=== PATIENT | male | born 1940 | race Caucasian/White ===

== ENCOUNTER 2021-03-11 00:41 | Inpatient (IN) | payer MEDICARE, OTHER ==
[~2021-03-11] VITALS: Ht 170.2 cm; Wt 82.6 kg
--- NOTE | 2021-03-11 01:11 | NUR ---
Patient BIB private ambulance from [facility] on a 5150 hold for DTO to be medically cleared to be admitted to MHU. Patient upon arrival calm and cooperative, A/Ox2. Patient denies CP, SOB, N/V. No distress noted.
[2021-03-11] MEDS ORDERED: ATOR10TA PO (01:15)
[2021-03-11] MEDS ORDERED: HYDR25TA4 PO (01:15)
[2021-03-11] MEDS ORDERED: BENA40TA8 PO (01:15)
[2021-03-11] MEDS ORDERED: robaxin PO (01:15)
[2021-03-11] MEDS ORDERED: QUET25TA PO (01:15)
[2021-03-11] MEDS ORDERED: ALBU18HF2 INH (01:15)
[2021-03-11] MEDS ORDERED: CELE200C PO (01:15)
[2021-03-11] MEDS ORDERED: BENA1TAB72 PO (01:15)
[2021-03-11] MEDS ORDERED: FAMO-132 PO (01:15)
[2021-03-11] MEDS ORDERED: LEVO100T10 PO (01:15)
[2021-03-11] MEDS ORDERED: METF-495 PO (01:15)
[2021-03-11] MEDS ORDERED: ASCO-375 PO (01:15)
[2021-03-11] MEDS ORDERED: AMLO10TA59 PO (01:15)
[2021-03-11] MEDS ORDERED: BENZ-13 PO (01:15)
[2021-03-11] MEDS ORDERED: DULO60CA45 PO (01:15)
[2021-03-11] MEDS ORDERED: DONE5TAB7 PO (01:15)
--- NOTE | 2021-03-11 02:00 | NUR ---
Transfered to MHU via gurny with no distress noted.
[2021-03-11 02:30] VITALS: BP 173/91
[2021-03-11 02:45] VITALS: BP 133/75
[2021-03-11] MEDS ORDERED: BLOOD SUGAR DIAGNOSTIC 1 EACH STRIP VI ONE (02:45)
[2021-03-11] MEDS ORDERED: MAG HYDROX/AL HYDROX/SIMETH 30 ML LIQUID UDC PO PRN (02:45)
[2021-03-11] MEDS ORDERED: MAGNESIUM HYDROXIDE 30 ML LIQUID UDC PO PRN (02:45)
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
[2021-03-11] MEDS: LORAZEPAM 1 MG TABLET PO PRN ×3 (03:01→14:40)
[2021-03-11] MEDS: ACETAMINOPHEN 325 MG TABLET PO PRN (03:02)
[2021-03-11 03:45] VITALS: BP 133/75
[2021-03-11] MEDS ORDERED: CLONIDINE HCL 0.1 MG TABLET PO ONE (03:45)
--- NOTE | 2021-03-11 03:45 | NUR ---
HIGH BLOOD PRESSURE NOTE; b/p upon admission was 173/91. pt was aggressive, and PRN ativan was given, at 0245. as of now, it is 133/75. pt was uncooperative with interview, as well as a poor historian. he was assisted to the toilet, then to bed.
[2021-03-11] MEDS ORDERED: hydrALAZINE HCL 10 MG TABLET PO PRN (04:00)
--- NOTE | 2021-03-11 04:15 | NUR ---
appears to be asleep. Dr. Bass was notifird of elevated b/p. PRN orders for hydralazine were given, and noted. will continue to monitor closely.
[2021-03-11 05:03] LABS: *BILIRUBIN,URIN NEGATIVE (NEGATIVE); *BLOOD, URINE NEGATIVE (NEGATIVE); *CLARITY,URINE CLEAR (CLEAR); *COLOR,URINE YELLOW (YELLOW); *KETONES,URINE NEGATIVE (NEGATIVE); *UROBILINOGEN,URINE 0.2 E.U./dl (NORMAL); LEUKOCYTE ESTERASE ,URINE NEGATIVE (NEGATIVE); NITRITE, URINE NEGATIVE (NEGATIVE); PH,URINE 6.5 (5.0-8.0); UGLUCOSE NEGATIVE (NEGATIVE)
--- NOTE | 2021-03-11 06:30 | NUR ---
slept 8 hours. continues to sleep. am labs, drawn without problems. will continue to monitor closely.
[2021-03-11 07:30] VITALS: BP 145/71
--- NOTE | 2021-03-11 09:07 | NUR ---
Firearms Report: Package Car Driver completed and submitted a DOJ firearms report for 5150 grave disability certifications. A copy of report has been placed in patient chart.
--- NOTE | 2021-03-11 10:32 | NUR ---
LESLY Family contact: LESLY left a voicemail for patient's Tosha ([phone]) to discuss treatment and discharge plan. Waiting for a call back. LESLY also attempted to call different phone number ([phone]) however no dial tone.
--- NOTE | 2021-03-11 10:36 | NUR ---
Treatment Plan: Patient refused to sign treatment plan due to disorganized thought process.
[2021-03-11] MEDS ORDERED: DEXTROSE 50% 50 ML DISP.SYRIN IV PRN (12:15)
[2021-03-11] MEDS ORDERED: ALBUTEROL SULFATE 8 GM HFA.AER.AD INH PRN (12:15)
[2021-03-11] MEDS: ASCORBIC ACID 500 MG TABLET PO SCH (12:29)
[2021-03-11] MEDS: AMLODIPINE 10 MG TABLET PO SCH (12:29)
[2021-03-11] MEDS ORDERED: ALBUTEROL SULFATE 2.5 MG/3 ML NEBU NEB PRN (12:30)
--- NOTE | 2021-03-11 12:51 | NUR ---
GPS: Nursing Notes: Destructive Behavior to Others: Patient is awake and responding to his name, impaired judgment, resistant with nursing care, disoriented, gets easily irritable when redirected, resistant with nursing care, episodes of disrobing, throwing his cloth and pillow on the floor, redirected and reoriented during shift, unsteady gait, on fall precautions, but constantly trying to get out of guanaco chair, believes that he needs to go home across the street, unable to ambulate by self, loud and pressured speech, internally preoccupied, anxious, unable to formulate a viable plan for self care, continue with treatment plan.
[2021-03-11] MEDS: LEVOTHYROXINE SODIUM 100 MCG TABLET PO SCH (13:04)
[2021-03-11] MEDS: CELECOXIB 100 MG CAPSULE PO SCH ×2 (13:05→21:57)
[2021-03-11] MEDS: HYDROCHLOROTHIAZIDE 25 MG TABLET PO SCH (13:06)
[2021-03-11] MEDS ORDERED: QUETIAPINE FUMARATE 25 MG TABLET PO PRN (13:30)
[2021-03-11] MEDS: DIVALPROEX SPRINKLE 125 MG CAP.SPRINK PO SCH ×2 (14:41→17:15)
[2021-03-11 15:13] VITALS: BP 169/68
[2021-03-11] MEDS ORDERED: INSULIN REGULAR, HUMAN 300 UNIT/3 ML VIAL SQ PRN (16:30)
[2021-03-11] MEDS: QUETIAPINE FUMARATE 25 MG TABLET PO SCH ×2 (17:00→22:00)
[2021-03-11] MEDS: METFORMIN XR 500 MG TAB.SR.24H PO SCH (17:15)
[2021-03-11] MEDS: BLOOD SUGAR DIAGNOSTIC 1 EACH STRIP VI SCH ×2 (17:17→22:29)
[2021-03-11 20:03] VITALS: BP 134/79
[2021-03-11] MEDS ORDERED: ATORVASTATIN 10 MG TABLET PO SCH (21:00)
[2021-03-11] MEDS: DONEPEZIL 5 MG TABLET PO SCH (22:00)
--- NOTE | 2021-03-11 22:00 | NUR ---
received to care, initially asleep. attempted to climb out of bed around 2029, and was assisted to the bathroom, where he voided, and had a bowel movement. when this auto service writer attempted to give him his Meds, he was asleep, and slow to awaken. he was confused, but agreed to take his bedtime medications when given to him, he was offered the cup, but didnt seem to understand what to do, so they were placed in his mouth for him. he immediately threw them out of his mouth, refusing all Meds. water was offered, but he threw that, too. he was very angry/hostile, stating "get the hell out of my house" reorientation was attempted, but he remained uncooperative. he fell back asleep quickly. bed alarm armed for safety. HOB elevated. remains asleep, in no acute distress. will continue to monitor closely.
--- NOTE | 2021-03-12 06:30 | NUR ---
slept 6.0 hours. assisted to bathroom. pt remains labile, hostile, and easily agitated.
[2021-03-12] MEDS: BLOOD SUGAR DIAGNOSTIC 1 EACH STRIP VI SCH ×3 (07:02→17:00)
[2021-03-12 07:30] VITALS: BP 159/76
[2021-03-12 07:58] LABS: MEAN CORPUSCULAR VOLUME 98.6 fL (73.0-96.2); PLATELET COUNT (AUTO) 269 K/uL (152-348)
[2021-03-12] MEDS: DIVALPROEX SPRINKLE 125 MG CAP.SPRINK PO SCH ×3 (08:20→16:52)
[2021-03-12] MEDS: AMLODIPINE 10 MG TABLET PO SCH (08:21)
[2021-03-12] MEDS: ASCORBIC ACID 500 MG TABLET PO SCH (08:21)
[2021-03-12] MEDS: CELECOXIB 100 MG CAPSULE PO SCH ×2 (08:24→16:55)
[2021-03-12 08:26] LABS: BILIRUBIN,TOTAL 0.9 mg/dL (0.2-1.0); CREATININE 1.1 mg/dL (0.6-1.3); MAGNESIUM 1.7 mg/dL (1.8-2.4); PHOSPHOROUS 3.1 mg/dL (2.5-4.9); POTASSIUM 3.8 mmol/L (3.5-5.1); TOTAL PROTEIN, SERUM 7.4 g/dL (6.4-8.2)
[2021-03-12] MEDS: HYDROCHLOROTHIAZIDE 25 MG TABLET PO SCH (08:27)
[2021-03-12] MEDS: LEVOTHYROXINE SODIUM 100 MCG TABLET PO SCH (08:28)
[2021-03-12] MEDS: METFORMIN XR 500 MG TAB.SR.24H PO SCH ×2 (08:30→17:00)
[2021-03-12] MEDS: QUETIAPINE FUMARATE 25 MG TABLET PO SCH ×3 (08:34→20:31)
[2021-03-12 08:45] LABS: THYROID STIMULATING HORMONE 1.703 mIU/mL (0.358-3.740)
--- NOTE | 2021-03-12 09:00 | NUR ---
GPS:Nursing note: Pt is awake in guanaco- chair. a/o x1. pt spt out medication, stated he is unable to swallow medications and they make him choke, he was compliant with crushed medications in apple sauce. pt appears stable, not in acute distress or discomfort at this time. will continue to monitor.
--- NOTE | 2021-03-12 11:24 | NUR ---
LESLY Initial Discharge Plan: Patient resides at home [address] [place] [address] with pt's , Tosha ([phone]). Patient's requested a SNF placement for the patient at this time upon discharge from the hospital. LESLY will continue to work with patient, family, and MD to ensure a safe and proper discharge plan.
--- NOTE | 2021-03-12 11:25 | NUR ---
SW Family contact: SW spoke with patient's Tosha ([phone]) and discussed treatment and discharge plan. Tosha provided collateral information (see sw assessment). Tosha stated she the DPOA and this SW requested copies. Tosha would like SNF placement for the patient. SW will coordinate appropriate placement options.
[2021-03-12] MEDS ORDERED: MAGNESIUM OXIDE 400 MG TABLET PO ONE (11:30)
[2021-03-12] MEDS: FAMOTIDINE 20 MG TABLET PO SCH (14:54)
[2021-03-12 16:00] VITALS: BP 151/70
[2021-03-12] MEDS: DONEPEZIL 5 MG TABLET PO SCH (20:31)
[2021-03-12] MEDS: LISINOPRIL 5 MG TABLET PO SCH (20:57)
[2021-03-12 21:13] VITALS: BP 146/74
[2021-03-13] MEDS: LISINOPRIL 5 MG TABLET PO SCH ×2 (08:55→20:03)
[2021-03-13] MEDS: METFORMIN HCL 500 MG TABLET PO SCH ×2 (08:56→17:51)
[2021-03-13] MEDS: DIVALPROEX SPRINKLE 125 MG CAP.SPRINK PO SCH ×3 (08:56→17:51)
[2021-03-13] MEDS: ASCORBIC ACID 500 MG TABLET PO SCH (08:56)
[2021-03-13] MEDS: LEVOTHYROXINE SODIUM 100 MCG TABLET PO SCH (08:56)
[2021-03-13] MEDS: CELECOXIB 100 MG CAPSULE PO SCH ×2 (08:56→17:00)
[2021-03-13] MEDS: QUETIAPINE FUMARATE 25 MG TABLET PO SCH ×3 (08:56→20:02)
[2021-03-13] MEDS: AMLODIPINE 10 MG TABLET PO SCH (08:57)
[2021-03-13] MEDS: FAMOTIDINE 20 MG TABLET PO SCH (08:58)
[2021-03-13] MEDS: HYDROCHLOROTHIAZIDE 25 MG TABLET PO SCH (09:11)
--- NOTE | 2021-03-13 13:37 | NUR ---
LESLY SNF Referral: LESLY faxed patient's referral packet to [facility] ( ) attention to Fritz and learning services coordinator Lawrence for review.
--- NOTE | 2021-03-13 15:58 | NUR ---
Gps/Personnel Clerk- Remains up in his guanaco-chair , compliant with routine medications, safety reviewed, emphasized.
[2021-03-13 16:00] VITALS: BP_SYST 126; BP_SYST 162; BP_DIAS 66; BP_DIAS 76
[2021-03-13] MEDS: DONEPEZIL 5 MG TABLET PO SCH (20:02)
[2021-03-13 20:04] VITALS: BP 156/71
[2021-03-13] MEDS: ACETAMINOPHEN 325 MG TABLET PO PRN (20:23)
--- NOTE | 2021-03-13 22:00 | NUR ---
GPS: Asleep at this time in bed with bed alarm on for safety. Confused,forgetful and disorganized. Reality re-orientation provided prn. Assisted to the bathroom prn. Med.compliant. No aggressive behavior noted but was easily irritable earlier. Will continue to monitor.
[2021-03-14] MEDS: LORAZEPAM 1 MG TABLET PO PRN (06:25)
[2021-03-14] MEDS: LEVOTHYROXINE SODIUM 100 MCG TABLET PO SCH (06:25)
--- NOTE | 2021-03-14 06:25 | NUR ---
GPS: Pt. is confused,disoriented and attempting to wander in other pt's room. Easily agitated/irritable when being re-directed. Verbally abusive to this keno writer/runner when being re-directed and attempting to strike out at staff. Refused Synthroid med and Ativan 1mg PO when offered. Meds were thrown by pt.on the floor. Encouraged and assisted back to bed at this time. Fall precautions observed. Will continue to monitor for further escalation of behavior.
[2021-03-14 07:30] VITALS: BP 155/68
[2021-03-14] MEDS: METFORMIN HCL 500 MG TABLET PO SCH ×3 (08:00→17:40)
[2021-03-14] MEDS: CELECOXIB 100 MG CAPSULE PO SCH ×3 (09:00→16:38)
[2021-03-14] MEDS: DIVALPROEX SPRINKLE 125 MG CAP.SPRINK PO SCH ×5 (09:00→17:05)
[2021-03-14] MEDS: QUETIAPINE FUMARATE 25 MG TABLET PO SCH ×4 (09:00→20:18)
[2021-03-14] MEDS: FAMOTIDINE 20 MG TABLET PO SCH (09:29)
[2021-03-14] MEDS: ASCORBIC ACID 500 MG TABLET PO SCH (09:29)
[2021-03-14] MEDS: HYDROCHLOROTHIAZIDE 25 MG TABLET PO SCH (09:32)
[2021-03-14] MEDS: AMLODIPINE 10 MG TABLET PO SCH (09:33)
[2021-03-14] MEDS: LISINOPRIL 5 MG TABLET PO SCH ×2 (09:34→20:16)
--- NOTE | 2021-03-14 10:18 | NUR ---
Gps/It Web Development Consultant- Remains up in his guanaco-chair , refusing to take routine am meds., spits out all medications , explained to patient importance of his medications, claimed his in the only person that gives him meds. patient tricky with his meds. pretends he took, spits it back in his water . Gets irritable, grumpy.
--- NOTE | 2021-03-14 10:42 | NUR ---
LESLY PC Hearing: Patient had 5250 probable cause hearing today and it was upheld for grave disability.
[2021-03-14] MEDS ORDERED: QUETIAPINE FUMARATE 25 MG TABLET PO PRN (13:30)
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
[2021-03-14 16:06] VITALS: BP 152/77
[2021-03-14 20:12] VITALS: BP 100/55
[2021-03-14] MEDS: DONEPEZIL 5 MG TABLET PO SCH (20:18)
[2021-03-14] MEDS: ACETAMINOPHEN 325 MG TABLET PO PRN (20:19)
[2021-03-14] MEDS: TEMAZEPAM 7.5 MG CAPSULE PO PRN (22:51)
[2021-03-15] MEDS: LEVOTHYROXINE SODIUM 100 MCG TABLET PO SCH (06:21)
--- NOTE | 2021-03-15 06:34 | NUR ---
GPS: Pt.slept 6 hrs.last night. Assisted to the bathroom x2 during the shift due to unsteady gait. No escalation of behavior noted. Re-directed and re-assured prn. Will continue to monitor.
[2021-03-15 07:10] LABS: BILIRUBIN,TOTAL 0.6 mg/dL (0.2-1.0); CREATININE 1.3 mg/dL (0.6-1.3); POTASSIUM 4.3 mmol/L (3.5-5.1); TOTAL PROTEIN, SERUM 6.7 g/dL (6.4-8.2)
[2021-03-15 07:12] LABS: HEMATOCRIT 39.1 % (36.7-47.1); MEAN CORPUSCULAR HEMOGLOBIN 33.7 uug (23.8-33.4); MEAN CORPUSCULAR VOLUME 99.7 fL (73.0-96.2); PLATELET COUNT (AUTO) 227 K/uL (152-348)
[2021-03-15 07:30] VITALS: BP 139/65
[2021-03-15] MEDS: DIVALPROEX SPRINKLE 125 MG CAP.SPRINK PO SCH ×3 (08:53→16:22)
[2021-03-15] MEDS: ASCORBIC ACID 500 MG TABLET PO SCH (08:54)
[2021-03-15] MEDS: HYDROCHLOROTHIAZIDE 25 MG TABLET PO SCH (08:54)
[2021-03-15] MEDS: CELECOXIB 100 MG CAPSULE PO SCH ×2 (08:54→16:21)
[2021-03-15] MEDS: LISINOPRIL 5 MG TABLET PO SCH ×2 (08:54→19:49)
[2021-03-15] MEDS: AMLODIPINE 10 MG TABLET PO SCH (08:55)
[2021-03-15] MEDS: FAMOTIDINE 20 MG TABLET PO SCH (08:55)
[2021-03-15] MEDS: QUETIAPINE FUMARATE 25 MG TABLET PO SCH ×4 (08:55→19:49)
[2021-03-15] MEDS: METFORMIN HCL 500 MG TABLET PO SCH ×2 (09:35→18:06)
--- NOTE | 2021-03-15 13:30 | NUR ---
Gps/Teacher Of Gifted Students- Ambulated to the bathroom with front wheel walker, continent of bladder.Patient preferred to eat sandwich , fed self ind. compliant with his routine pm meds. Patient wants to stay up in his guanaco-chair. Had been interactive with staff. gets easily irritable, but making simple needs known.
--- NOTE | 2021-03-15 14:54 | NUR ---
Gps/Cardiac Nurse- Complained of being tired, patient was assisted back to bed, ambulated back to his room with front wheel walker . Safety reviewed, and emphasized.
[2021-03-15 16:00] VITALS: BP 139/67
--- NOTE | 2021-03-15 18:48 | NUR ---
Gps/Food Crops Farm Hand- Patient remains up in his guanaco-chair , confused and disoriented, calling out, needed redirections .Ambulated to the bathroom with FWW, min assist .
[2021-03-15] MEDS: LORAZEPAM 1 MG TABLET PO PRN (19:48)
[2021-03-15] MEDS: DONEPEZIL 5 MG TABLET PO SCH (19:49)
[2021-03-15 20:00] VITALS: BP 111/75
--- NOTE | 2021-03-16 05:07 | NUR ---
Received patient in the Margot chair scooting himself around the unit. Patient was angry and with visual hallucinations. Multiple attempts to reorient the patient were unsuccessful. This technical proposal writer was eventually able to calm patient down at which point , the patient took his PM medications without difficulty. Assistance provided to patient when going to the bathroom a couple of times during the night. The patient is very confused and easily irritated. Sleep hour so far are 7.15 . Continuing to monitor the patient for safety and behavior escalation.
[2021-03-16] MEDS: LEVOTHYROXINE SODIUM 100 MCG TABLET PO SCH (06:10)
[2021-03-16 07:30] VITALS: BP_SYST 138; BP_DIAS 57; BP_DIAS 77
[2021-03-16] MEDS: DIVALPROEX SPRINKLE 125 MG CAP.SPRINK PO SCH ×3 (08:31→18:06)
[2021-03-16] MEDS: FAMOTIDINE 20 MG TABLET PO SCH (08:32)
[2021-03-16] MEDS: QUETIAPINE FUMARATE 25 MG TABLET PO SCH ×4 (08:32→20:30)
[2021-03-16] MEDS: AMLODIPINE 10 MG TABLET PO SCH (08:32)
[2021-03-16] MEDS: ASCORBIC ACID 500 MG TABLET PO SCH (08:33)
[2021-03-16] MEDS: METFORMIN HCL 500 MG TABLET PO SCH ×2 (08:33→17:03)
[2021-03-16] MEDS: LISINOPRIL 5 MG TABLET PO SCH ×2 (08:34→20:03)
[2021-03-16] MEDS: CELECOXIB 100 MG CAPSULE PO SCH ×2 (08:35→16:30)
[2021-03-16] MEDS: HYDROCHLOROTHIAZIDE 25 MG TABLET PO SCH (08:35)
--- NOTE | 2021-03-16 09:16 | NUR ---
Gps/Irrigation Flume Layer- Irritable this am, anxious, demanding to be taen to the bathroom right away to urinal. Ambulated to the bathroom with FWW, min. assist, gaits slgihtly unsteady.Needed verbal cueing sequencing his tasks. Hesitancy in taking his routine am meds. claimed he already took his am meds. Remains up in his guanaco-chair, monitoring safety, tends to get up wants to walk around
--- NOTE | 2021-03-16 13:01 | NUR ---
Gps/Senior Clinical Data Manager- Patient was showered with min assist., stayed up in his guanaco-chair during lunch. Encouraged to take his routine pm meds., requested to ge given with apple sauce.
[2021-03-16 16:00] VITALS: BP 135/58
[2021-03-16] MEDS: LORAZEPAM 1 MG TABLET PO PRN (19:50)
[2021-03-16 19:52] VITALS: BP 154/76
[2021-03-16] MEDS: DONEPEZIL 5 MG TABLET PO SCH (20:02)
[2021-03-16] MEDS: TEMAZEPAM 7.5 MG CAPSULE PO PRN (21:23)
--- NOTE | 2021-03-17 06:03 | NUR ---
GPS: Pt.slept 4.45 last night. Had episodes of being restless and attempting to get out of bed unassisted. Gait was unsteady. Poor insight to present situation. Mood remains labile and unstable. Re-directed prn. Will continue to monitor.
[2021-03-17] MEDS: LEVOTHYROXINE SODIUM 100 MCG TABLET PO SCH (06:25)
[2021-03-17 07:49] VITALS: BP 145/72
[2021-03-17] MEDS: ASCORBIC ACID 500 MG TABLET PO SCH (09:00)
[2021-03-17] MEDS: FAMOTIDINE 20 MG TABLET PO SCH (09:00)
[2021-03-17] MEDS: HYDROCHLOROTHIAZIDE 25 MG TABLET PO SCH (09:00)
[2021-03-17] MEDS: CELECOXIB 100 MG CAPSULE PO SCH ×2 (09:02→16:42)
[2021-03-17] MEDS: METFORMIN HCL 500 MG TABLET PO SCH ×2 (09:02→17:05)
[2021-03-17] MEDS: DIVALPROEX SPRINKLE 125 MG CAP.SPRINK PO SCH ×3 (09:03→20:06)
[2021-03-17] MEDS: LISINOPRIL 5 MG TABLET PO SCH ×2 (09:03→20:09)
[2021-03-17] MEDS: AMLODIPINE 10 MG TABLET PO SCH (09:04)
[2021-03-17] MEDS: QUETIAPINE FUMARATE 25 MG TABLET PO SCH ×4 (09:05→16:42)
--- NOTE | 2021-03-17 12:58 | NUR ---
SW Family Contact SW received VM from Jonas Gibson ([phone]) with [facility] informing she has been receiving distressed calls from pt's fearing for her life it pt returns home. Per Jonas, pt's is requesting updates re: placement plan. SW received VM from pt's requesting call back. LESLY called and spoke with pt's Tosha Waterman ([phone]) to provide updates on discharge plan to [facility]. Pt's requesting placement in [place].
--- NOTE | 2021-03-17 14:38 | NUR ---
GPS: Nursing Notes: Destructive Behavior to Others: Patient is awake responding to his name, impaired judgment, resistant with nursing care, poor anger management, verbal abusive toward staff, disruptive by shouting profanities toward staff, "FUCK YOU..", "FUCK THIS PLACE.. BITCH, I AM LEAVING..", gets easily irritable and angry when redirected, believes that we are lying to him, poor impulse control, labile, unpredictable behavior, redirected and reoriented during shift, but unable to follow directions, threatening staff, refused his 13:00 hours medications by slapping the pills off the staff hand when offer to him, continue to monitor for safety, unable to formulate a viable plan for self care, believes that he is leaving today, continue with treatment plan.
[2021-03-17 15:47] VITALS: BP 129/58
[2021-03-17] MEDS ORDERED: QUETIAPINE FUMARATE 25 MG TABLET PO SCH ×2 (17:00→21:00)
[2021-03-17 20:00] VITALS: BP 154/81
--- NOTE | 2021-03-17 20:00 | NUR ---
received to care, restless, confused, up in gerichair, for safety. multiple attempts observed, to climb out of chair. states he wants to go home. needs frequent redirection. difficult to redirect, or orient to reality. will continue to monitor.
[2021-03-17] MEDS: DONEPEZIL 5 MG TABLET PO SCH (20:06)
--- NOTE | 2021-03-17 21:30 | NUR ---
S/P FALL NOTE; as previously noted, he has been attempting to climb out of chair, over the last few hours. staff heard a noise, and he was found on floor, next to chair. no evidence of injury, and he denied pain or discomfort. he was placed back in chair. offered bathroom. no distress noted.
[2021-03-17] MEDS: LORAZEPAM 1 MG TABLET PO PRN (22:02)
--- NOTE | 2021-03-17 22:30 | NUR ---
remains agitated, and restless. compliant with routine medications. PRN ativan was given at 2202. he remains agitated and restless. continues to deny pain. monitored closely for safety.
[2021-03-17] MEDS: TEMAZEPAM 7.5 MG CAPSULE PO PRN (23:30)
--- NOTE | 2021-03-17 23:32 | NUR ---
remains restless. up in guanaco chair for safety. PRN restoril was given.
--- NOTE | 2021-03-18 00:30 | NUR ---
assited to bed, after he calmed down. appears to be asleep. bed alarm armed. no distress noted.
[2021-03-18 07:30] VITALS: BP 145/67
[2021-03-18] MEDS: LEVOTHYROXINE SODIUM 100 MCG TABLET PO SCH (07:41)
[2021-03-18] MEDS: FAMOTIDINE 20 MG TABLET PO SCH (08:45)
[2021-03-18] MEDS: AMLODIPINE 10 MG TABLET PO SCH (08:46)
[2021-03-18] MEDS: DIVALPROEX SPRINKLE 125 MG CAP.SPRINK PO SCH ×2 (08:46→21:40)
[2021-03-18] MEDS: CELECOXIB 100 MG CAPSULE PO SCH ×2 (08:46→16:48)
[2021-03-18] MEDS: HYDROCHLOROTHIAZIDE 25 MG TABLET PO SCH (08:47)
[2021-03-18] MEDS: ASCORBIC ACID 500 MG TABLET PO SCH (08:47)
[2021-03-18] MEDS: QUETIAPINE FUMARATE 25 MG TABLET PO SCH ×2 (08:47→13:36)
[2021-03-18] MEDS: METFORMIN HCL 500 MG TABLET PO SCH ×2 (08:47→17:06)
[2021-03-18] MEDS: LISINOPRIL 5 MG TABLET PO SCH (08:47)
[2021-03-18 15:10] VITALS: BP 143/62
[2021-03-18] MEDS: risperiDONE 0.5 MG TABLET PO SCH ×2 (16:48→21:41)
[2021-03-18] MEDS: LORAZEPAM 1 MG TABLET PO PRN (20:38)
--- NOTE | 2021-03-18 20:39 | NUR ---
received to care agitated, restless, and difficult to redirect. attempting to climb out of guanaco chair, which he is in, for safety. PRN ativan was given for agitation. assisted to bathroom, and given a snack. will continue to monitor closely.
[2021-03-18] MEDS ORDERED: LISINOPRIL 5 MG TABLET PO SCH (21:00)
[2021-03-18 21:26] VITALS: BP 134/72
[2021-03-18] MEDS: DONEPEZIL 5 MG TABLET PO SCH (21:40)
[2021-03-18] MEDS: LISINOPRIL 10 MG TABLET PO SCH (21:41)
[2021-03-18] MEDS: TEMAZEPAM 7.5 MG CAPSULE PO PRN (23:30)
--- NOTE | 2021-03-19 03:42 | NUR ---
PRN restoril was given for insomnia at 2330. he has been back and forth between bed and guanaco chair, several times. slept for a few hours. assisted to the bathroom, also several times. continues to be at risk for falls. monitored closely and redirected, as needed.
--- NOTE | 2021-03-19 06:00 | NUR ---
slept 30 minutes, total.
--- NOTE | 2021-03-19 06:30 | NUR ---
remains restless, and agitated. slept poorly. up in guanaco chair, at nurses station, for safety monitoring.
[2021-03-19] MEDS: LORAZEPAM 1 MG TABLET PO PRN ×3 (06:37→20:25)
[2021-03-19] MEDS: LEVOTHYROXINE SODIUM 100 MCG TABLET PO SCH (06:37)
--- NOTE | 2021-03-19 06:38 | NUR ---
PRN ativan, given for anxiety/agitation.
[2021-03-19 07:48] VITALS: BP 152/75
[2021-03-19] MEDS: DIVALPROEX SPRINKLE 125 MG CAP.SPRINK PO SCH ×2 (08:00→21:47)
[2021-03-19] MEDS: METFORMIN HCL 500 MG TABLET PO SCH ×2 (08:00→17:23)
[2021-03-19] MEDS: CELECOXIB 100 MG CAPSULE PO SCH ×2 (09:40→17:22)
[2021-03-19] MEDS: risperiDONE 0.5 MG TABLET PO SCH ×4 (09:41→21:48)
[2021-03-19] MEDS: HYDROCHLOROTHIAZIDE 25 MG TABLET PO SCH (09:41)
[2021-03-19] MEDS: ASCORBIC ACID 500 MG TABLET PO SCH (09:41)
[2021-03-19] MEDS: FAMOTIDINE 20 MG TABLET PO SCH (09:41)
[2021-03-19] MEDS: AMLODIPINE 10 MG TABLET PO SCH (09:41)
[2021-03-19] MEDS: LISINOPRIL 10 MG TABLET PO SCH ×2 (09:41→20:37)
--- NOTE | 2021-03-19 10:59 | NUR ---
GPS: SPOKE WITH PT'S AND REQUESTING DR. SMITH TO CALL HER FOR ANY UPDATE RE: PT CONDITION. REPORTED TO THAT PT IS RESTLESS AND TRYING TO GET OUT OG GERICHAIR AND YESTERDAY, PT HAD EPISODE OF FALL AND FOUND LAYING ON THE FLOOR. GIVEN ATIVAN AT AROUND 6AM.
[2021-03-19 13:31] LABS: HEMATOCRIT 42.3 % (36.7-47.1); MEAN CORPUSCULAR VOLUME 100.5 fL (73.0-96.2); PLATELET COUNT (AUTO) 237 K/uL (152-348)
[2021-03-19 13:40] LABS: BILIRUBIN,TOTAL 0.6 mg/dL (0.2-1.0); CREATININE 1.1 mg/dL (0.6-1.3); POTASSIUM 4.3 mmol/L (3.5-5.1); TOTAL PROTEIN, SERUM 7.5 g/dL (6.4-8.2)
--- NOTE | 2021-03-19 14:51 | NUR ---
GPS: DR. SMITH CALLED [facility], THE , BUT UNFORTUNATELY WAS THE WRONG NO. [facility]'S NEW NO. IS [phone]. WILL ASK DR SMITH TO CALL [facility] AGAIN TOMORROW
[2021-03-19 16:11] VITALS: BP 137/71
[2021-03-19 18:56] LABS: *BILIRUBIN,URIN NEGATIVE (NEGATIVE); *BLOOD, URINE NEGATIVE (NEGATIVE); *CLARITY,URINE CLEAR (CLEAR); *COLOR,URINE YELLOW (YELLOW); *KETONES,URINE 1+ (NEGATIVE); *UROBILINOGEN,URINE 0.2 E.U./dl (NORMAL); LEUKOCYTE ESTERASE ,URINE NEGATIVE (NEGATIVE); NITRITE, URINE NEGATIVE (NEGATIVE); PH,URINE 5.5 (5.0-8.0); UGLUCOSE NEGATIVE (NEGATIVE)
[2021-03-19 20:05] VITALS: BP 152/78
[2021-03-19] MEDS: ACETAMINOPHEN 325 MG TABLET PO PRN (20:46)
[2021-03-19] MEDS: DONEPEZIL 5 MG TABLET PO SCH (21:47)
--- NOTE | 2021-03-20 03:56 | NUR ---
received to care, up in guanaco chair, for safety, restless and agitated. PRN ativan given at 2034, with minimal effects. given scheduled medications about an hour later. appeared to be distracted by internal stimuli, talking to self, and picking at the air. snacks and fluids were given. assisted to bed, at one point, after he stated he was tired, but he almost immediately tried to climb over the rails, with no explanation why he was doing so. he was then assisted back to the guanaco chair at nurses station, for safety. toileted as needed, but has had several episodes of incontinence. as of now, he remains asleep, at nurses station, for safety. no distress noted. will continue to monitor closely.
--- NOTE | 2021-03-20 06:00 | NUR ---
slept 7.5 hours, mostly in the chair. assisted back to bed this morning, and went right to sleep. no distress noted.
--- NOTE | 2021-03-20 07:30 | NUR ---
attempted to give AM dose of Synthroid, but patient is too sleepy to administer, although he is arousable, and responsive to voice and external stimulation. this was endorsed to the oncoming shift, for follow up.
[2021-03-20 08:00] VITALS: BP 117/50
--- NOTE | 2021-03-20 09:10 | NUR ---
SW SNF Referral SW Contacted Luz Reagan at [address] [place] [address] ([phone]) to discuss placement for patient upon discharge. SW faxed over pt's clinicals for referral such as H and P, progress notes, and medication list.
--- NOTE | 2021-03-20 09:15 | NUR ---
GPS: PT STILL ON BED, ASLEEP. AROUSABLE BY CALLING HIS NAME AND ANSWERS BACK. PT FEELS OKAY HE MENTIONED. MEDICATION ON HOLD UNTIL PT WAKES UP.
[2021-03-20] MEDS: METFORMIN HCL 500 MG TABLET PO SCH ×2 (10:09→17:01)
[2021-03-20] MEDS: ASCORBIC ACID 500 MG TABLET PO SCH (10:09)
[2021-03-20] MEDS: LEVOTHYROXINE SODIUM 100 MCG TABLET PO SCH (10:09)
[2021-03-20] MEDS: FAMOTIDINE 20 MG TABLET PO SCH (10:09)
[2021-03-20] MEDS: DIVALPROEX SPRINKLE 125 MG CAP.SPRINK PO SCH ×2 (10:10→20:07)
[2021-03-20] MEDS: CELECOXIB 100 MG CAPSULE PO SCH ×2 (10:13→16:57)
[2021-03-20] MEDS: LISINOPRIL 10 MG TABLET PO SCH ×2 (10:13→20:07)
[2021-03-20] MEDS: HYDROCHLOROTHIAZIDE 25 MG TABLET PO SCH (10:13)
[2021-03-20] MEDS: risperiDONE 0.5 MG TABLET PO SCH ×2 (10:14→20:06)
[2021-03-20] MEDS: AMLODIPINE 10 MG TABLET PO SCH (10:14)
--- NOTE | 2021-03-20 11:03 | NUR ---
GPS: PT TOLERATED WELL THE MEDICATION AFTER PT HAD A BREAKFAST. PT PSYCHIATRIC MEDICATIONS WAS HOLD DUE TO SEDATION. PT REFUSED BLOOD DRAW FROM MOTOR VEHICLE ASSEMBLER.
--- NOTE | 2021-03-20 11:45 | NUR ---
LESLY Adult Protective Services Contact LESLY spoke with Lisa Sam from [facility] [address] [facility] [address] ([phone]) to provide her information regarding his placement at [address] [address] upon discharge. LESLY verbally confirmed that patient has been referred her and is awaiting discharge by doctor.
[2021-03-20] MEDS: risperiDONE 0.25 MG TABLET PO SCH ×2 (12:30→16:56)
[2021-03-20] MEDS ORDERED: risperiDONE 0.5 MG TABLET PO SCH (13:00)
[2021-03-20 16:20] VITALS: BP 122/73
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
[2021-03-20 20:04] VITALS: BP 148/68
[2021-03-20] MEDS: DONEPEZIL 5 MG TABLET PO SCH (20:06)
[2021-03-20] MEDS: LORAZEPAM 1 MG TABLET PO PRN ×2 (21:48→23:21)
--- NOTE | 2021-03-20 21:48 | NUR ---
GPS: Pt.is anxious,restless,confused and disoriented. Verbally aggressive/abusive to staff when being re-directed. Poor insight to present situation. Paranoid,suspicious,and easily agitated when approached. Refused Ativan 1mg PO when offered x3. Fall precautions observed. Reality re-orientation provided prn. Will continue to monitor.
[2021-03-21] MEDS: TEMAZEPAM 7.5 MG CAPSULE PO PRN ×2 (00:09→21:37)
[2021-03-21] MEDS: LEVOTHYROXINE SODIUM 100 MCG TABLET PO SCH (06:11)
--- NOTE | 2021-03-21 06:48 | NUR ---
GPS: Pt.slept 3.30 last night despite receiving Restoril prn for insomnia. Pt.was restless,irritable,confused and needed frequent re-direction and re-assurance during the night. Attempted to get out of bed few times and needed to be put on a guanaco-chair in front of nurses station for safety. Needs attended. Assisted to the bathroom earlier for elimination purposes. Gait remains unsteady with poor safety awareness. Will continue to monitor.
[2021-03-21 07:30] VITALS: BP 110/61
[2021-03-21] MEDS: CELECOXIB 100 MG CAPSULE PO SCH ×2 (08:04→17:05)
[2021-03-21] MEDS: HYDROCHLOROTHIAZIDE 25 MG TABLET PO SCH (08:04)
[2021-03-21] MEDS: LISINOPRIL 10 MG TABLET PO SCH ×2 (08:04→20:04)
[2021-03-21] MEDS: METFORMIN HCL 500 MG TABLET PO SCH ×2 (08:07→17:04)
[2021-03-21] MEDS: ASCORBIC ACID 500 MG TABLET PO SCH (08:07)
[2021-03-21] MEDS: AMLODIPINE 10 MG TABLET PO SCH (08:07)
[2021-03-21] MEDS: FAMOTIDINE 20 MG TABLET PO SCH (08:08)
[2021-03-21] MEDS: risperiDONE 0.25 MG TABLET PO SCH ×2 (08:08→12:00)
--- NOTE | 2021-03-21 12:46 | NUR ---
SW SNF Contact SW called and left voice message for Luz ([phone]), ware carrier with [facility] [place] [address] ([phone]), to follow-up on referral sent 03/20/21.
--- NOTE | 2021-03-21 12:50 | NUR ---
LESLY SNF Contact Per Dr. Denney's request, LESLY called [facility] [address] [facility] [address] ([phone]) and left voice message for Fritz to request call back to secure back-up facility for pending hospital discharge.
[2021-03-21] MEDS: DIVALPROEX 250 MG TABLET.DR PO SCH (13:30)
--- NOTE | 2021-03-21 13:56 | NUR ---
SW SNF Follow-up SW called Luz Reagan at [address] [place] [address] ([phone]) and was informed RNs will not accept pt d/t combative behaviors and facility is short-term facility while pt requires long-term facility
--- NOTE | 2021-03-21 14:03 | NUR ---
SW SNF Referrals LESLY faxed patient's referral packet to [place] ( ) attention to Lizet for review. LESLY faxed patient's referral packet to [facility] ( ) attention to Fritz and learning and development coordinator aLwrence for review.
--- NOTE | 2021-03-21 14:42 | NUR ---
SW Discharge Planning Received call from Lizet ordoñez pt has been accepted at [place] [address] [facility], [place] [address] ([phone]). Dr. Denney has been made aware.
--- NOTE | 2021-03-21 15:55 | NUR ---
SW APS Contact SW called and left voice message for Lisa Flaco ([phone]) with [facility] [address] [facility] [address] and requested call back to discuss updates re: discharge planning.
[2021-03-21 16:00] VITALS: BP 122/61
[2021-03-21] MEDS: risperiDONE 0.5 MG TABLET PO SCH ×2 (17:05→20:04)
[2021-03-21] MEDS: DIVALPROEX SPRINKLE 125 MG CAP.SPRINK PO SCH (20:04)
[2021-03-21] MEDS: DONEPEZIL 5 MG TABLET PO SCH (20:04)
[2021-03-21 20:15] VITALS: BP 126/68
[2021-03-21] MEDS: LORAZEPAM 1 MG TABLET PO PRN (23:20)
--- NOTE | 2021-03-22 05:53 | NUR ---
GPS: Pt.slept 6.30 last night. Remains confused,disoriented and unpredictable. Reality re-orientation provided prn. Fall precautions observed. Will continue to monitor.
[2021-03-22] MEDS: LEVOTHYROXINE SODIUM 100 MCG TABLET PO SCH (06:10)
[2021-03-22 08:07] VITALS: BP 121/58
[2021-03-22 08:10] VITALS: BP 145/76
[2021-03-22] MEDS: DIVALPROEX 250 MG TABLET.DR PO SCH (08:11)
[2021-03-22] MEDS: ASCORBIC ACID 500 MG TABLET PO SCH (08:11)
[2021-03-22] MEDS: risperiDONE 0.5 MG TABLET PO SCH ×4 (08:11→20:16)
[2021-03-22] MEDS: FAMOTIDINE 20 MG TABLET PO SCH (08:11)
[2021-03-22] MEDS: METFORMIN HCL 500 MG TABLET PO SCH ×2 (08:11→17:33)
[2021-03-22] MEDS: CELECOXIB 100 MG CAPSULE PO SCH ×2 (08:12→17:33)
[2021-03-22] MEDS: LISINOPRIL 10 MG TABLET PO SCH ×2 (08:30→20:19)
[2021-03-22] MEDS: AMLODIPINE 10 MG TABLET PO SCH (08:31)
[2021-03-22] MEDS: HYDROCHLOROTHIAZIDE 25 MG TABLET PO SCH (08:32)
[2021-03-22 17:20] VITALS: BP 124/68
--- NOTE | 2021-03-22 18:15 | NUR ---
Remain uncooperative with care. refused dinner. assisted with adl's. continue plan of care.
[2021-03-22 20:03] VITALS: BP 146/62
[2021-03-22] MEDS: LORAZEPAM 1 MG TABLET PO PRN (20:17)
[2021-03-22] MEDS: DIVALPROEX SPRINKLE 125 MG CAP.SPRINK PO SCH (20:17)
[2021-03-22] MEDS: DONEPEZIL 5 MG TABLET PO SCH (20:17)
[2021-03-22] MEDS: TEMAZEPAM 7.5 MG CAPSULE PO PRN (21:54)
[2021-03-23] MEDS: LEVOTHYROXINE SODIUM 100 MCG TABLET PO SCH (06:38)
[2021-03-23 07:49] VITALS: BP 123/67
[2021-03-23] MEDS: METFORMIN HCL 500 MG TABLET PO SCH ×2 (08:16→17:03)
[2021-03-23] MEDS: CELECOXIB 100 MG CAPSULE PO SCH ×2 (08:16→17:03)
[2021-03-23] MEDS: ASCORBIC ACID 500 MG TABLET PO SCH (08:17)
[2021-03-23] MEDS: FAMOTIDINE 20 MG TABLET PO SCH (08:17)
[2021-03-23] MEDS: risperiDONE 0.5 MG TABLET PO SCH ×4 (08:17→20:45)
[2021-03-23] MEDS: DIVALPROEX 250 MG TABLET.DR PO SCH (08:17)
[2021-03-23] MEDS: HYDROCHLOROTHIAZIDE 25 MG TABLET PO SCH (08:18)
[2021-03-23] MEDS: AMLODIPINE 10 MG TABLET PO SCH (08:18)
[2021-03-23] MEDS: LISINOPRIL 10 MG TABLET PO SCH ×2 (08:19→20:45)
[2021-03-23 16:30] VITALS: BP 139/82
--- NOTE | 2021-03-23 18:09 | NUR ---
only one episode noted in the morning to spit out his Glucophage, however patient took it on second try. no other episodes of refusing medication noted during shift.
[2021-03-23 20:07] VITALS: BP 121/76
[2021-03-23] MEDS: DONEPEZIL 5 MG TABLET PO SCH (20:45)
[2021-03-23] MEDS: DIVALPROEX SPRINKLE 125 MG CAP.SPRINK PO SCH (20:45)
[2021-03-23] MEDS: LORAZEPAM 1 MG TABLET PO PRN (22:14)
[2021-03-24] MEDS: TEMAZEPAM 7.5 MG CAPSULE PO PRN (01:41)
--- NOTE | 2021-03-24 02:11 | NUR ---
received to care, up in guanaco chair, anxious, but pleasant upon approach. compliant with medications and staff direction. PRN ativan was given at 2214, for restlessness. he was put to bed around 2300, and fell asleep. he was given PRN restoril, at 0140, for increasing restlessness. an of now, he appears to be asleep. no distress noted. will continue to monitor closely.
--- NOTE | 2021-03-24 06:00 | NUR ---
Slept 5 hours, total. Continues to sleep. no distress noted.
[2021-03-24] MEDS: LEVOTHYROXINE SODIUM 100 MCG TABLET PO SCH (07:04)
[2021-03-24 07:50] VITALS: BP 109/52
[2021-03-24 07:53] LABS: HEMATOCRIT 40.7 % (36.7-47.1); MEAN CORPUSCULAR HEMOGLOBIN 33.2 uug (23.8-33.4); MEAN CORPUSCULAR VOLUME 99.3 fL (73.0-96.2); PLATELET COUNT (AUTO) 201 K/uL (152-348)
[2021-03-24 08:03] LABS: ALANINE AMINOTRANSFERASE 34 U/L (16-63); ALKALINE PHOSPHATASE 65 U/L (50-136); ASPARTATE AMINOTRANSFERASE 27 U/L (15-37); BILIRUBIN,TOTAL 0.8 mg/dL (0.2-1.0); CARBON DIOXIDE 26 mmol/L (21-32); CHLORIDE 103 mmol/L (98-107); CREATININE 1.7 mg/dL (0.6-1.3); GLUCOSE 117 mg/dL (74-106); POTASSIUM 4.5 mmol/L (3.5-5.1); TOTAL PROTEIN, SERUM 7.2 g/dL (6.4-8.2); UREA NITROGEN, BLOOD 46 mg/dL (7-18)
[2021-03-24] MEDS: ASCORBIC ACID 500 MG TABLET PO SCH (09:11)
[2021-03-24] MEDS: FAMOTIDINE 20 MG TABLET PO SCH (09:11)
[2021-03-24] MEDS: LISINOPRIL 10 MG TABLET PO SCH (09:12)
[2021-03-24] MEDS: AMLODIPINE 10 MG TABLET PO SCH (09:12)
[2021-03-24 09:13] VITALS: BP 109/52
[2021-03-24] MEDS: risperiDONE 0.5 MG TABLET PO SCH ×2 (09:13→14:24)
[2021-03-24] MEDS: METFORMIN HCL 500 MG TABLET PO SCH (09:13)
[2021-03-24] MEDS: CELECOXIB 100 MG CAPSULE PO SCH (09:13)
[2021-03-24] MEDS: HYDROCHLOROTHIAZIDE 25 MG TABLET PO SCH (09:13)
[2021-03-24] MEDS: DIVALPROEX 250 MG TABLET.DR PO SCH (09:13)
--- NOTE | 2021-03-24 09:46 | NUR ---
GPS: PT ON CHAIR, SLEEPY. HAD 5 HOURS OF SLEEP LAST NIGHT. TRIED TO GIVE MEDICATION BUT PT ABLE TO TAKE A LITTLE OF IT. PT WILL BE DISCHARGE TODAY AT [facility] AND WILL BE FOLLOW UP AT THE FACILITY WITH PSYCHIATRIST DR SMITH AND FIELD SALES AGENT DR BELL. DENIES ANY SUICIDAL OR HOMOCIDAL IDEATION.
[2021-03-24] MEDS ORDERED: IV NS 1000 ML 1,000 ML IV ONE (10:15)
[2021-03-24] MEDS ORDERED: BENZTROPINE MESYLATE 0.5 MG TABLET PO SCH (10:15)
--- NOTE | 2021-03-24 10:46 | NUR ---
SW Facility Contact SW was informed by RN that pt will be transferring to medical floor. LESLY called and spoke with from [facility] ([phone]) informing that pt will not be discharging today to [place] [address] [facility] [address].
--- NOTE | 2021-03-24 12:13 | NUR ---
Dr. Denney and Dr. Toan Romero, [facility] notified of patient's elevated BUN and creatinine levels, increased drowsiness, and poor PO intake with food and fluids. Dr. Romero gave orders for IV NS 1 L fluid bolus and to admit patient upstairs under the care of Dr. Yin for the diagnosis of EMERY, secondary dehydration. Per Dr. Denney, discontinue 5250 hold and continue all medications. coating supervisor notified. Barry, RN, from 3rd floor called and notified or pending admission, patient assigned to room 304. This press writer started 20 g peripheral IV on patient's right arm without adverse event. Flushed with sterile NS, NS bolus being administered. This press writer spoke with patient's , Tosha [phone], to notify of discharge and admission upstairs. Tosha was updated with treatment plan, and she is able to verbalize agreement. Patient is alert and oriented to name only. He is sitting quietly in chair. SW [facility].
--- NOTE | 2021-03-24 12:24 | NUR ---
SW Note Pt was to be discharged to [facility] at [address] [facility] [place] [address] ([phone]); however, pt transferred to [facility]. Pt will likely go to [facility] once stable. Contact: marycarmen Escobar ([phone] or [phone], fax: [phone]).
[2021-03-24 12:35] LABS: VALPROIC ACID 57 ug/mL (50-100)
--- NOTE | 2021-03-24 15:04 | NUR ---
GPS: IV INFUSION DONE. 860ML INFUSED OUT OF 100-0 Addendum: 03/24/21 at 1508 by ASUNCION URENA RN GPS: IV INFUSION DONE. 860ML INFUSED OUT OF 1000ML 0.9 NACl. PT ACCIDENTALLY PULLED THE IV CATH OUT OF RIGHT WRIST. PT ALERT AND VERBALLY RESPONSIVE. DENIES ANY PAIN OR DISCOMFORT AT THIS TIME. PT READY TO BE DISCHARGED TO MED SURG UNIT.
[2021-03-24] MEDS ORDERED: MAG355OR18 PO (16:38)
[2021-03-24] MEDS ORDERED: DIVA125C2 PO ×2 (16:38)
[2021-03-24] MEDS ORDERED: COGENTIN PO (16:38)
[2021-03-24] MEDS ORDERED: HYDR25TA4 PO (16:38)
[2021-03-24] MEDS ORDERED: HYDR-4075 PO (16:38)
[2021-03-24] MEDS ORDERED: DONE5TAB7 PO (16:38)
[2021-03-24] MEDS ORDERED: LISI20TA PO (16:38)
[2021-03-24] MEDS ORDERED: TEMA7.5C PO (16:38)
[2021-03-24] MEDS ORDERED: CELE100C PO (16:38)
[2021-03-24] MEDS ORDERED: RISP0.5T5 PO ×2 (16:38)
[2021-03-24] MEDS ORDERED: LORA-259 PO (16:40)
[2021-03-24] MEDS ORDERED: BENZ0.5T43 PO (16:41)
[2021-03-27] MEDS ORDERED: TEMA7.5C PO (12:01)
== END 2021-03-24 15:15 | disposition admitted as inpatient to this hospital (09) | DRG 885 ==
LOC: ER 00:49 → GPS 02:33
PROVIDERS: ADMIT Psychiatry & Neurology Psychosomatic Medicine; ATTEND Internal Medicine
DX: F25.9 Schizoaffective disorder, unspecified (principal); N17.0 Acute kidney failure with tubular necrosis; G93.41 Metabolic encephalopathy; D68.59 Other primary thrombophilia; E03.9 Hypothyroidism, unspecified; G30.9 Alzheimer's disease, unspecified; F02.80 Dementia in other diseases classified elsewhere, unspecified severity, without behavioral disturbance, psychotic disturbance, mood disturbance, and anxiety; J44.9 Chronic obstructive pulmonary disease, unspecified; I10 Essential (primary) hypertension; N40.0 Benign prostatic hyperplasia without lower urinary tract symptoms; E11.9 Type 2 diabetes mellitus without complications; F32.A Depression, unspecified; E86.0 Dehydration; K21.9 Gastro-esophageal reflux disease without esophagitis; M19.90 Unspecified osteoarthritis, unspecified site; Z86.010 Personal history of colon polyps; G14 Postpolio syndrome; E66.9 Obesity, unspecified; Z68.28 Body mass index [BMI] 28.0-28.9, adult
CPT/HCPCS: 36415; 73501; 80164; 83735; 84100; 84443; 85025; 87086; 97161; A4663; J1815; J3490; J7030

== ENCOUNTER 2021-03-24 15:40 | Inpatient (IN) | payer MEDICARE, OTHER ==
[~2021-03-24] VITALS: Ht 170.2 cm; Wt 82.6 kg
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
[2021-03-24 15:40] VITALS: BP 160/77
[~2021-03-24 15:40] MED LIST: ALBU18HF2 INH; AMLO10TA59 PO; ASCO-375 PO; ATOR10TA PO; BENA1TAB72 PO; BENA40TA8 PO; BENZ-13 PO; CELE200C PO; FAMO-132 PO; HYDR25TA4 PO; LEVO100T10 PO; METF-495 PO; QUET25TA PO; robaxin PO
--- NOTE | 2021-03-24 15:40 | NUR ---
NOTIFIED DR OLIVEROS THAT PATIENT IS HERE AND PULLED OUT HIS LINE WILL NEED A MITTENS AND HE STATED OKAY WITH ORDERS.
[2021-03-24] MEDS ORDERED: Z GUARD REMEDY PASTE 57 GM TUBE TOP PRN (15:45)
[2021-03-24] MEDS ORDERED: ONDANSETRON 4 MG/2 ML VIAL IV PRN (15:45)
[2021-03-24] MEDS ORDERED: MAGNESIUM HYDROXIDE 30 ML LIQUID UDC PO PRN (15:45)
--- NOTE | 2021-03-24 15:57 | NUR ---
UNABLE TO INSERT A PERIPHERAL LINE TRIED 2 TIMES PATIENT IS VERY UPSET MD AWARE WITH OKAY FOR A MID LINE.
[2021-03-24] MEDS ORDERED: CELE100C PO (16:38)
[2021-03-24] MEDS ORDERED: DONE5TAB7 PO (16:38)
[2021-03-24] MEDS ORDERED: MAG355OR18 PO (16:38)
[2021-03-24] MEDS ORDERED: LISI20TA PO (16:38)
[2021-03-24] MEDS ORDERED: HYDR-4075 PO (16:38)
[2021-03-24] MEDS ORDERED: DIVA125C2 PO ×2 (16:38)
[2021-03-24] MEDS ORDERED: HYDR25TA4 PO (16:38)
[2021-03-24] MEDS ORDERED: COGENTIN PO (16:38)
[2021-03-24] MEDS ORDERED: TEMA7.5C PO (16:38)
[2021-03-24] MEDS ORDERED: RISP0.5T5 PO ×2 (16:38)
[2021-03-24] MEDS ORDERED: LORA-259 PO (16:40)
[2021-03-24] MEDS ORDERED: BENZ0.5T43 PO (16:41)
--- NOTE | 2021-03-24 16:45 | NUR ---
CALLED AND NOTIFIED DR OLIVEROS RE NEED TO VERIFY PATIENTS MEDICATIONS AT FIRST STATED THAT IT SHOULD BE VERIFIED BY THE PSYCH BUT I REMINDED HIM THAT PATIENT IS NOW MEDICAL AND NEEDS BOTH PSYCH MEDS AND MEDICAL MEDS VERIFIED BY HIM AND HE STATED OKAY WILL CHECK.
[2021-03-24] MEDS ORDERED: OLANZAPINE 10 MG VIAL IM ONE (17:30)
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
--- NOTE | 2021-03-24 18:00 | NUR ---
PATIENT IS NOW ASLEEP ON THE CHAIR ENDORSED AND WILL CONTINUE TO OBSERVE.
[2021-03-24 20:00] VITALS: BP 125/74
[2021-03-24] MEDS: Z GUARD REMEDY PASTE 57 GM TUBE TOP SCH (21:15)
[2021-03-24] MEDS: IV D5 1/2 NS 1000 ML 1,000 ML IV PRN (22:54)
[2021-03-25] VITALS: BP 157/73
[2021-03-25 04:00] VITALS: BP 131/89
[2021-03-25 06:09] LABS: HEMATOCRIT 39.7 % (36.7-47.1); MEAN CORPUSCULAR HEMOGLOBIN 33.5 uug (23.8-33.4); MEAN CORPUSCULAR VOLUME 99.6 fL (73.0-96.2); PLATELET COUNT (AUTO) 193 K/uL (152-348)
[2021-03-25 06:24] LABS: ALANINE AMINOTRANSFERASE 31 U/L (16-63); ALKALINE PHOSPHATASE 61 U/L (50-136); ASPARTATE AMINOTRANSFERASE 25 U/L (15-37); BILIRUBIN,TOTAL 0.5 mg/dL (0.2-1.0); CARBON DIOXIDE 25 mmol/L (21-32); CHLORIDE 105 mmol/L (98-107); CHOLESTEROL 114 mg/dL (<200); CREATININE 1.5 mg/dL (0.6-1.3); GLUCOSE 127 mg/dL (74-106); HDL CHOLESTEROL 47 mg/dL (40-60); MAGNESIUM 2.2 mg/dL (1.8-2.4); PHOSPHOROUS 3.4 mg/dL (2.5-4.9); POTASSIUM 3.9 mmol/L (3.5-5.1); TRIGLYCERIDES 74 MG/DL (30-150); UREA NITROGEN, BLOOD 42 mg/dL (7-18)
[2021-03-25 06:35] LABS: THYROID STIMULATING HORMONE 3.554 mIU/mL (0.358-3.740)
--- NOTE | 2021-03-25 06:56 | NUR ---
PATIENT ASLEEP. SLEPT WELL THROUGHOUT THE NIGHT IN BED. PATIENT WOKE UP THIS MORNING AND TRANSFERRED BACK TO CHAIR. VSS. WILL CONTINUE TO MONITOR AND ASSESS.
--- NOTE | 2021-03-25 07:30 | NUR ---
RECEIVED PATIENT IN BED AWAKE ALERT TO SELF WITH CONFUSSION AND DISORIENTATION ALL NEEDS ANTICIPATED AND SATISFIED HE IS ON D5I/2 NS AT 75ML/HR VIA MID LINE ON HIS LEFT UPPER ARM WRAPPED WITH KIRLIX FOR PROTECTION HE HAS A SITTER OBSERVER AT THE BEDSIDE NO ATTEMPTS HAS BEEN MADE BY PATIENT TO PULL OUT ANY LINES AT THIS TIME SO HIS MITTENS HAS BEEN LEFT OFF ON ROOM AIR WITH NO SHORTNESS OF BREATH AT THIS TIME MAX ASSIST FOR ALL ADL WILL CONTINUE TO OBSERVE.
[2021-03-25] MEDS: Z GUARD REMEDY PASTE 57 GM TUBE TOP SCH ×2 (09:44→21:06)
[2021-03-25] MEDS ORDERED: DEXTROSE 50% 50 ML DISP.SYRIN IV PRN (11:15)
[2021-03-25] MEDS ORDERED: ALBUTEROL SULFATE 2.5 MG/3 ML NEBU NEB PRN (11:15)
[2021-03-25] MEDS ORDERED: BENZONATATE 100 MG CAPSULE PO PRN (11:15)
[2021-03-25] MEDS ORDERED: MAG HYDROX/AL HYDROX/SIMETH 30 ML LIQUID UDC PO PRN (11:15)
[2021-03-25] MEDS ORDERED: ALBUTEROL SULFATE 8 GM HFA.AER.AD INH PRN (11:15)
[2021-03-25] MEDS ORDERED: TEMAZEPAM 7.5 MG CAPSULE PO PRN (11:15)
[2021-03-25] MEDS ORDERED: INSULIN REGULAR, HUMAN 300 UNIT/3 ML VIAL SQ PRN (11:30)
--- NOTE | 2021-03-25 11:55 | NUR ---
DR SMITH HERE TO SEE AND EXAMINE PATIENT WITH NEW ORDER STATED TO DISCONTINUE SERROQUEL AND NOTED.
[2021-03-25] MEDS: IV D5 1/2 NS 1000 ML 1,000 ML IV PRN (11:57)
[2021-03-25] MEDS: ACETAMINOPHEN 325 MG TABLET PO PRN (11:58)
[2021-03-25] MEDS: ASCORBIC ACID 500 MG TABLET PO SCH (11:58)
[2021-03-25] MEDS: DIVALPROEX SPRINKLE 125 MG CAP.SPRINK PO SCH ×2 (11:58→21:02)
[2021-03-25] MEDS: LISINOPRIL 10 MG TABLET PO SCH ×2 (11:59→23:42)
[2021-03-25] MEDS: LEVOTHYROXINE SODIUM 100 MCG TABLET PO SCH (11:59)
[2021-03-25] MEDS: BENZTROPINE MESYLATE 0.5 MG TABLET PO SCH ×2 (11:59→21:06)
[2021-03-25] MEDS: FAMOTIDINE 20 MG TABLET PO SCH (11:59)
[2021-03-25 12:00] VITALS: BP 143/60
[2021-03-25] MEDS: AMLODIPINE 10 MG TABLET PO SCH (12:00)
[2021-03-25] MEDS: BLOOD SUGAR DIAGNOSTIC 1 EACH STRIP VI SCH ×3 (12:00→21:07)
[2021-03-25] MEDS: risperiDONE 0.5 MG TABLET PO SCH ×3 (12:15→21:01)
[2021-03-25 13:44] LABS: *BILIRUBIN,URIN 1+ (NEGATIVE); *BLOOD, URINE NEGATIVE (NEGATIVE); *CLARITY,URINE CLEAR (CLEAR); *COLOR,URINE YELLOW (YELLOW); *KETONES,URINE 2+ (NEGATIVE); *UROBILINOGEN,URINE 0.2 E.U./dl (NORMAL); LEUKOCYTE ESTERASE ,URINE NEGATIVE (NEGATIVE); NITRITE, URINE NEGATIVE (NEGATIVE); PH,URINE 5.5 (5.0-8.0); UGLUCOSE NEGATIVE (NEGATIVE)
--- NOTE | 2021-03-25 15:20 | NUR ---
NOTED THAT PATIENT HAS 1 PLUS EDEMA ON HIS BILATERAL LOWER FOOT [facility] PROVIDER NOTIFIED WITH NO NEW ORDERS AT THIS TIME BOTH LEGS/FEET ELEVATED ON THE PILLOW TO DECREASE SWELLING.
--- NOTE | 2021-03-25 15:49 | NUR ---
BILATERAL MITTENS HAS NOT BEEN USED PATIENT HAS A ONE ON ONE SITTER AND IS DISTRACTING HIM AND And ATTENDING TO HIM AND SUCH MITTENS HAS NOT BEEN IN USE ALL DAY PATIENT PROVIDER BERLIN [employer]ERAS NOTIFIED WITH ORDER TO DISCONTINUE AND MAY REORDER IF NECESSARY.
[2021-03-25 16:00] VITALS: BP 139/62
--- NOTE | 2021-03-25 18:00 | NUR ---
IVF REMAINS IN PROGRESS ORDERED WITH NO S/S OF INFILTERATION ON SITE RIGHT UPPER ARM MID LINE REMAINS IN PLACE HAS A SITTER SO MITTENS HAS NOT BEEN IN USE ALL SHIFT SO MITTENS DISCONTINUED.WILL CONTINUE TO OBSERVE.
[2021-03-25 20:00] VITALS: BP 115/59
[2021-03-25] MEDS ORDERED: QUETIAPINE FUMARATE 25 MG TABLET PO SCH (21:00)
[2021-03-25] MEDS: DONEPEZIL 5 MG TABLET PO SCH (21:02)
[2021-03-25] MEDS: ATORVASTATIN 10 MG TABLET PO SCH (21:02)
--- NOTE | 2021-03-25 21:30 | NUR ---
AWAKE ALERT VERBALLY RESPONDS WITH CONFUSSION ATTEMPTS TO CARRY ON CONVERSATION BUT HE IS DISORIENTED AND UNAWARE OF DESTINATIONS OR EVENTS REALITY ORIENTATION IS ONGOING REMAIN ON IVF ORDERED WITH NO S/S OF INFILTERATION ON MID LINE ON HIS RIGHT UPPER ARM ALL NEEDS ANTICIPATED AND SATISFIED WITH MAX ASSISTS NEEDED MADE COMFORTABLE AND WILL CONTINUE TO OBSERVE
--- NOTE | 2021-03-26 01:30 | NUR ---
NOTED PATIENT HAS INSOMNIA MEDICATED WITH RESTORIL ORDERED TURNED AND REPOSITIONED FOR COMFORT WITH NAIF CARE CONTINUE TO NEED ONE TO ONE SITTER RELATED TO CONFUSSION DISORIENTATION WITH POOR SAFETY AWARENESS AT RISKS FOR PULLING OUT MIDLINE WILL CONTINUE TO OBSERVE.
[2021-03-26] MEDS: IV D5 1/2 NS 1000 ML 1,000 ML IV PRN ×2 (01:47→15:16)
[2021-03-26 04:04] VITALS: BP 165/65
[2021-03-26] MEDS: LORAZEPAM 1 MG TABLET PO PRN (04:08)
--- NOTE | 2021-03-26 04:08 | NUR ---
SLEPT POORLY AND IS AWAKE AND GETTING RESTLESS UNABLE TO REDIRECT MEDICATED WITH ATIVAN ORDERED MADE COMFORTABLE WILL CONTINUE TO OBSERVE.
[2021-03-26] MEDS: BLOOD SUGAR DIAGNOSTIC 1 EACH STRIP VI SCH ×4 (06:38→20:43)
--- NOTE | 2021-03-26 06:53 | NUR ---
UP ON THE [employer] CHAIR PATIENT IS TRYING TO GET OUT OF BED UNASSISTED AND AT RISK FOR FALL
[2021-03-26 07:00] LABS: POTASSIUM 4.9 mmol/L (3.5-5.1)
[2021-03-26 07:30] VITALS: BP 136/52
[2021-03-26] MEDS: AMLODIPINE 10 MG TABLET PO SCH (08:17)
[2021-03-26] MEDS: LEVOTHYROXINE SODIUM 100 MCG TABLET PO SCH (08:17)
[2021-03-26] MEDS: DIVALPROEX SPRINKLE 125 MG CAP.SPRINK PO SCH ×2 (08:17→20:07)
[2021-03-26] MEDS: risperiDONE 0.5 MG TABLET PO SCH ×4 (08:17→20:07)
[2021-03-26] MEDS: FAMOTIDINE 20 MG TABLET PO SCH (08:17)
[2021-03-26] MEDS: BENZTROPINE MESYLATE 0.5 MG TABLET PO SCH (08:17)
[2021-03-26] MEDS: LISINOPRIL 10 MG TABLET PO SCH ×2 (08:17→20:18)
[2021-03-26] MEDS: ASCORBIC ACID 500 MG TABLET PO SCH (08:17)
[2021-03-26] MEDS: Z GUARD REMEDY PASTE 57 GM TUBE TOP SCH ×2 (08:55→20:18)
[2021-03-26 12:00] VITALS: BP 122/51
[2021-03-26 16:00] VITALS: BP 109/58
[2021-03-26] MEDS ORDERED: TEMAZEPAM 7.5 MG CAPSULE PO PRN (18:45)
[2021-03-26 20:00] VITALS: BP 139/76
[2021-03-26] MEDS: ATORVASTATIN 10 MG TABLET PO SCH (20:06)
[2021-03-26] MEDS: DONEPEZIL 5 MG TABLET PO SCH (20:06)
--- NOTE | 2021-03-26 22:17 | NUR ---
Pt with 1:1 sitter at bedside. No distress noted. Patient able to follow commands, but is not oriented. Care transfered to Tyson RN.
[2021-03-27] MEDS: ACETAMINOPHEN 325 MG TABLET PO PRN (00:29)
[2021-03-27] MEDS: LORAZEPAM 1 MG TABLET PO PRN (00:29)
[2021-03-27] MEDS: BLOOD SUGAR DIAGNOSTIC 1 EACH STRIP VI SCH ×2 (05:50→11:24)
--- NOTE | 2021-03-27 06:10 | NUR ---
Remain with 1:1 sitter at bedside. Ativan given for restlessness/agitation as ordered and needed with help. Slept good. VS stable. No s/s of respiratory distress
[2021-03-27 07:34] VITALS: BP 135/75
[2021-03-27] MEDS: LEVOTHYROXINE SODIUM 100 MCG TABLET PO SCH (08:10)
[2021-03-27] MEDS: FAMOTIDINE 20 MG TABLET PO SCH (08:10)
[2021-03-27] MEDS: DIVALPROEX SPRINKLE 125 MG CAP.SPRINK PO SCH (08:10)
[2021-03-27] MEDS: ASCORBIC ACID 500 MG TABLET PO SCH (08:10)
[2021-03-27] MEDS: AMLODIPINE 10 MG TABLET PO SCH (08:10)
[2021-03-27] MEDS: LISINOPRIL 10 MG TABLET PO SCH (08:10)
[2021-03-27] MEDS: risperiDONE 0.5 MG TABLET PO SCH ×2 (08:10→12:06)
[2021-03-27] MEDS: Z GUARD REMEDY PASTE 57 GM TUBE TOP SCH (08:27)
[2021-03-27 11:30] VITALS: BP 118/82
[2021-03-27] MEDS ORDERED: TEMA7.5C PO (12:01)
[2021-03-27] MEDS ORDERED: LORAZEPAM 2 MG/1 ML VIAL IV ONE (13:15)
--- NOTE | 2021-03-27 15:14 | NUR ---
dc orders received noted and carried out.dc instruction and rn [facility] to the [facility].dc midline per md orders,pt left the facility via ambulances in stable condition
== END 2021-03-27 15:18 | DRG 682 ==
LOC: MEDSURG3 15:40
PROVIDERS: ADMIT Internal Medicine; ATTEND Nurse Practitioner Acute Care
PROC: 05H633Z Insertion of Infusion Device into Left Subclavian Vein, Percutaneous Approach (ICD-10-PCS; principal; 2021-03-24)
PROC: B547ZZA Ultrasonography of Left Subclavian Vein, Guidance (ICD-10-PCS; 2021-03-24)
DX: N17.0 Acute kidney failure with tubular necrosis (principal); G93.41 Metabolic encephalopathy; D68.59 Other primary thrombophilia; F05 Delirium due to known physiological condition; F01.51 Vascular dementia, unspecified severity, with behavioral disturbance; E03.9 Hypothyroidism, unspecified; E11.9 Type 2 diabetes mellitus without complications; E86.1 Hypovolemia; F32.A Depression, unspecified; J44.9 Chronic obstructive pulmonary disease, unspecified; Z87.891 Personal history of nicotine dependence; I10 Essential (primary) hypertension; Z74.09 Other reduced mobility; M19.90 Unspecified osteoarthritis, unspecified site; Z87.19 Personal history of other diseases of the digestive system; F25.9 Schizoaffective disorder, unspecified; F29 Unspecified psychosis not due to a substance or known physiological condition
CPT/HCPCS: 36415; 83735; 84100; 84443; 85025; 87086; 97161; A4663; G0378; J1815; J2060; J2358; J3490